=== PATIENT | female | born 2000 | race Two or more races ===

== ENCOUNTER 2023-10-09 09:59 | Emergency (ER) | payer OTHER ==
[~2023-10-09] VITALS: Ht 165.1 cm; Wt 54.5 kg
[2023-10-09 10:33] VITALS: TEMP 98
[2023-10-09 14:26] VITALS: BP 118/65; PULSE 72; RESP 18
== END 2023-10-09 14:29 | disposition home or self-care (01) ==
LOC: EMS 09:59
DX: Z03.821 Encounter for observation for suspected ingested foreign body ruled out (principal); F12.90 Cannabis use, unspecified, uncomplicated
CPT/HCPCS: 71250; 72192; 74150; 74176; 84702; 99284